=== PATIENT | female | born 1955 | race Caucasian/White ===

== ENCOUNTER 2021-12-15 22:38 | Emergency (ER) | payer MEDICARE, OTHER ==
[~2021-12-15] VITALS: Ht 162 cm; Wt 59.0 kg
[2021-12-15 22:53] VITALS: BP 144/105
--- NOTE | 2021-12-15 23:20 | ED EENT ---
History of Present Illness General Chief Complaint: Oral/Throat Problems Stated Complaint: RIGHT EAR PAIN/SORE THROAT Nursing Triage Note: pt presents with c/o throat pain, horse voice, cough, and right ear pain since yesterday. reports she was on qurantine d/t having positive covid test until last friday. Source: patient Exam Limitations: no limitations History of Present Illness Date Seen by Provider: Dec 15, 2021 Time Seen by Provider: 22:48 Initial Comments 65-year-old female patient with history of hypertension presented POV with compl aining of right ear pain and sore throat and lost voice since yesterday. Patient states she has had dry cough and nasal congestion, sore throat and right ear pain and rated her pain 10/10. Patient had 1 Moderna COVID-vaccine and had exposure to COVID infection at home with her who was diagnosed with COVID last week. Allergies and Home Medications Allergies Coded Allergies: No Known Drug Allergies (Unverified , 12/15/21) Patient Home Medication List Home Medication List Reviewed: Yes Review of Systems Review of Systems Constitutional: no symptoms reported Eyes: No Symptoms Reported Ears: See HPI Nose: see HPI Mouth: no symptoms reported Throat: see HPI Respiratory: see HPI Cardiovascular: no symptoms reported Gastrointestinal: no symptoms reported Musculoskeletal: no symptoms reported Neurological: No Symptoms Reported Hematologic/Lymphatic: No Symptoms Reported Immunological/Allergic: no symptoms reported All Other Systems Reviewed Negative Unless Noted: Yes Past Uuoayib-[id number]-Mwxlrd Hx Patient Social History Tobacco Use?: Yes Tobacco type used: Cigarettes Smoking Status: Current Everyday Smoker Substance use?: No Alcohol Use?: No Pt feels they are or have been: No Immunizations Up To Date Influenza Vaccine Up-to-Date: No; Not Current First/Initial COVID19 Vaccinat: unknown date Second COVID19 Vaccination Kelvin: unknown date COVID19 Vaccine Mining Technician: moderna Physical Exam Vital Signs Vital Signs - First Documented 12/15/21 22:53 Temp 36.5 Pulse 103 Resp 18 B/P (MAP) 144/105 (118) Pulse Ox 95 O2 Delivery Room Air Height, Weight, BMI Height: '" Weight: lbs. oz. kg; 22.00 BMI Method: General Appearance: mild distress Eyes: bilateral eye normal inspection Ears: bilateral ear auricle normal, bilateral ear canal normal, bilateral ear TM normal Nose: normal inspection Mouth/Throat: normal mouth inspection, pharynx normal, other (Hoarseness) Neck: non-tender, full range of motion Cardiovascular: normal peripheral pulses, regular rate, rhythm Respiratory: chest non-tender, lungs clear, normal breath sounds, no respiratory distress Gastrointestinal: normal bowel sounds, non tender Neurologic/Psychiatric: no motor/sensory deficits, alert Skin: normal color Progress/Results/Core Measures Results/Orders Lab Results Laboratory Tests Test 12/15/21 22:55 Range/Units SARS-CoV-2 RNA (RT-PCR) Detected H Not Detecte Group A Streptococcus Screen NEGATIVE NEGATIVE My Orders Orders - SANDEEP MCMILLAN MD Covid 19 Inhouse Test (12/15/21 22:55) Rapid Strep A Screen (12/15/21 22:55) Vital Signs/I&O 12/15/21 22:53 Temp 36.5 Pulse 103 Resp 18 B/P (MAP) 144/105 (118) Pulse Ox 95 O2 Delivery Room Air Blood Pressure Mean: 118 Progress Progress Note : Progress Note Evaluation of patient in ER showed 65-year-old female patient with complaining of earache and sore throat and nasal congestion and nonproductive cough since yesterday after she had exposure to COVID infection last week. Patient had 1 Moderna COVID-vaccine. Patient had positive COVID test in ER. Patient had unremarkable physical exam but rated her pain 10/10. Patient treated with Tessalon and [place] in ER and albuterol inhaler and [place] was dispensed. Plan to give prescription for [place] and Tessalon and advised to quarantine for 1 week. Departure Impression Primary Impression: COVID-19 virus infection Additional Impression: Tobacco abuse Disposition: HOME, SELF-CARE Condition: Stable Departure-Patient Inst. Decision time for Depature: 23:37 Referrals: MARSHALL GOMEZ DO (PCP/Family) Primary Care Physician Patient Instructions: COVID-19 After You Have Been Vaccinated, COVID-19 Home Care/Discharge, Quitting Smoking ED Add. Discharge Instructions: Drink plenty of liquid Quit smoking Quarantine for 7 days Follow-up with your primary care physician or return to ER as needed. All discharge instructions reviewed with patient and/or family. Voiced understanding. Scripts Benzonatate (TESSALON PERLES) 100 Mg Capsule 100 MG PO QID PRN for COUGH, #30 CAP Prov: SANDEEP MCMILLAN MD 12/15/21 Hydrocodone/Acetaminophen (Hydrocodone-Acetamin 5-325 mg) 5 Mg-325 Mg Tablet 1 TAB PO Q4H PRN for PAIN-MODERATE (5-7), #10 TAB Prov: SANDEEP MCMILLAN MD 12/15/21 SANDEEP MCMILLAN MD Dec 15, 2021 23:20
[2021-12-15] MEDS ORDERED: HYDROcodone/APAP 5 MG/325 MG (LORTAB) TAB PO ONE (23:30)
[2021-12-15] MEDS ORDERED: RX-ALBUTEROL INHALER 8.5 GM HFA (PROAIR) IH ONE (23:30)
[2021-12-15] MEDS ORDERED: BENZ100C18 PO (23:39)
[2021-12-15] MEDS ORDERED: ACHD5005 PO (23:39)
[2021-12-15] MEDS ORDERED: BENZONATATE 100 MG (TESSALON) CAPSULE PO ONE (23:40)
[2021-12-16] MEDS ORDERED: BENZONATATE 100 MG (TESSALON) CAPSULE PO SCH (09:00)
== END 2021-12-15 23:47 | disposition home or self-care (01) ==
LOC: ER FS 22:45
DX: U07.1 COVID-19 (principal); F17.210 Nicotine dependence, cigarettes, uncomplicated
CPT/HCPCS: 87430; 87636; 99283